=== PATIENT | female | born 2000 | race Caucasian/White ===

== ENCOUNTER 2020-05-05 11:34 | Emergency (ER) | payer BC ==
[~2020-05-05] VITALS: Ht 162.6 cm; Wt 56.8 kg
[2020-05-05 11:37] VITALS: TEMP 98.9
[2020-05-05] MEDS ORDERED: ZITHROMAX Z PA250 MG PO (13:01)
[2020-05-05 13:07] VITALS: BP 121/68; PULSE 69
== END 2020-05-05 13:07 | disposition home or self-care (01) ==
LOC: COL.ER 11:34
DX: J06.9 Acute upper respiratory infection, unspecified (principal); Z20.828 Contact with and (suspected) exposure to other viral communicable diseases
CPT/HCPCS: J8540